=== PATIENT | male | born 1970 | race Hispanic/Latino ===

== ENCOUNTER 2022-01-19 12:29 | Emergency (ER) | payer OTHER ==
[~2022-01-19] VITALS: Ht 172.7 cm; Wt 190.5 kg
[2022-01-19 12:37] VITALS: BP 143/98
--- NOTE | 2022-01-19 12:46 | ER.PDOC ---
General Chief Complaint: Chest Pain-Cardiac Nature Stated Complaint: CHEST PAIN Time seen by MD: 12:22 Source: patient Exam Limitations: no limitations History of Present Illness Timing/Duration: intermittent, gone now Severity/Quality: sharp Radiation: no radiation Activities at Onset: rest Modifying Factors: breathing, coughing Nitro Today/Relief: No Nitro Taken Today Aspirin Today: No Aspirin Today Associated Symptoms: cough Past Medical History Medical History: diabetes, hypertension Surgical History: cholecystectomy, other Social History Alcohol Use: none Drug Use: none Constitutional: no symptoms reported EENTM: nose congestion Respiratory: cough Gastrointestinal: no symptoms reported Genitourinary: no symptoms reported Musculoskeletal: no symptoms reported Skin: no symptoms reported Psychiatric/Neurological: no symptoms reported All Other Systems: Reviewed and Negative Physical Exam General Appearance: No Apparent Distress, WD/WN HEENT: PERRL/EOMI, Normal ENT Inspection, TMs Normal, Pharynx Normal Neck: Non-Tender, Full Range of Motion, Supple, Normal Inspection Respiratory: rhonchi Cardiovascular: Normal Peripheral Pulses, Regular Rate, Rhythm, No Edema, No Gallop, No JVD, No Murmur Gastrointestinal: Normal Bowel Sounds, No Organomegaly, No Pulsatile Mass, Non Tender, Soft Extremities: Normal Range of Motion, Non-Tender, Normal Inspection, No Pedal Edema, No Calf Tenderness, Normal Capillary Refill 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 The patient nevertheless responded well to steroids and nebulized treatments and some Lasix. He actually feels much better and is going to be discharged home but I recommended he report to his PCP in the [place] area or hospital in [place]. He is leaving tonight. He does not want stay in the medical area where he has no family. He request to be discharged home. The son here at the bedside and he is going to be taking to forward. I explained to him that he must lose weight. I spent a considerable amount of time with this patient. Going back and forth to examine him. I attempted to transfer him but there were no beds in [facility]. He does not want to be transferred to one of the hospitals in [place]. In any case after several hours he improved. His oxygenation now on room air is between between 89-92 or 93. He is supposed 82. He speaks in full sentences. He appeared to be in no distress and he wanted discharged home. I believe that the intervention that we did have helped significantly. ER DEPART Departure Time of Disposition: 20:05 Disposition: 01 HOME / SELF CARE / HOMELESS Impression: Primary Impression: Congestive heart failure Additional Impressions: Acute pulmonary edema Post-COVID chronic dyspnea Hypoxia Condition: Improved Referrals: PCP,UNKNOWN (PCP) PRIMARY CARE PROVIDER Duration or Time Spent with Pa: 90 Problem Qualifiers ROCIO FUENTES MD Jan 19, 2022 12:46 ZAIDA MONREAL MD Jan 19, 2022 20:10
[2022-01-19 12:58] LABS: BASOPHIL # 0.1 10^3/uL (0.0-0.1); BASOPHIL % 0.4 % (0.0-0.2); EOSINOPHIL # 0.2 10^3/uL (0.0-0.2); EOSINOPHIL % 1.3 % (0.0-5.0); LYMPHOCYTES % 12.6 % (24.0-44.0); MEAN CORP HGB 29.8 pg (26-34); MONOCYTES # 0.9 10^3/uL (0.3-0.8); MONOCYTES % 6.6 % (5.0-12.0); NEUTROPHIL # 10.6 10^3/uL (1.8-7.7); PLATELET COUNT 175 10^3/uL (150-400); RED CELL DISTRIBUTION WIDTH 14.3 % (11.5-14.5)
--- NOTE | 2022-01-19 13:18 | PCM.EKG ---
[facility] Test Date: 2022-01-19 Test Time: 12:36:24 Pat Name: NOA HIRSCH [facility]: [id number] Room: Gender: M Mangle Catcher: LAURIE : 1970 Requested By: ROCIO MCKEON Order Number: [id number] Reading MD: Rocio Mckeon Measurements Intervals Pipestem Rate: 90 P: 6 PA: 172 QRS: -70 QRSD: 103 T: 46 QT: 332 QTc: 407 Interpretive Statements Sinus rhythm LAD, consider left anterior fascicular block Abnormal R-wave progression, late transition Baseline wander in lead(s) I,II,aVR No previous ECG available for comparison Electronically Signed On 01-30-2022 8:07:41 [employer]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
[2022-01-19 13:25] LABS: CARBON DIOXIDE 33.6 mmol/L (20.0-32)
--- NOTE | 2022-01-19 13:33 | DIREP ---
PROCEDURE:CHEST 2 VIEWS COMPARISON:None. INDICATIONS:CP FINDINGS: LUNGS/PLEURA:Mild interstitial prominence. No definite confluent airspace consolidation is identified. There is no sizable pleural effusion or appreciable pneumothorax. VASCULATURE:Fullness of the central hilar vasculature. CARDIAC:Mild prominence of the cardiac silhouette. MEDIASTINUM:Mediastinal contours appear within acceptable limits. BONES:No acute abnormality. OTHER:Negative. CONCLUSION: 1. Mild fullness of the central hilar vasculature with mild interstitial prominence throughout the bilateral hemithoraces does raise concern for potential mild CHF/fluid overload in the appropriate clinical setting. Please correlate with volume status. Dictated by: Zaid Brown M.D. On 01/19/2022 at 01:30 PM
[2022-01-19] MEDS ORDERED: DUO 0.5-3(2.5) MG/3 ML IH STA (13:52)
[2022-01-19] MEDS ORDERED: PREDNISONE PO STA ×2 (13:52→13:54)
[2022-01-19] MEDS ORDERED: DECADRON IH STA (13:52)
[2022-01-19] MEDS ORDERED: DECADRON ONE (14:07)
[2022-01-19] MEDS ORDERED: DUO 0.5-3(2.5) MG/3 ML IH ONE (14:07)
[2022-01-19] MEDS ORDERED: PREDNISONE ONE (14:28)
[2022-01-19] MEDS ORDERED: LASIX IV STA (14:50)
[2022-01-19] MEDS ORDERED: LASIX ONE (15:20)
--- NOTE | 2022-01-19 17:45 | NUR ---
[facility] EDP DR MONREAL ON PHONE WITH [facility] ABOUT POSSIBLE TRANSFER
--- NOTE | 2022-01-19 17:56 | NUR ---
[facility] PT IS PLACED ON THE WAITLIST AT THIS TIME, FACESHEET FAXED.
--- NOTE | 2022-01-19 18:33 | NUR ---
[facility] CALLED, STATES THEY ARE DECLINING PATIENT DUE TO NO BEDS. EDP NOTIFIED
== END 2022-01-19 20:17 | disposition home or self-care (01) ==
LOC: ER 12:29
DX: I11.0 Hypertensive heart disease with heart failure (principal); I50.1 Left ventricular failure, unspecified; E11.9 Type 2 diabetes mellitus without complications; R06.00 Dyspnea, unspecified; R09.02 Hypoxemia; U09.9 Post COVID-19 condition, unspecified; Z90.49 Acquired absence of other specified parts of digestive tract
CPT/HCPCS: 99285; 96374; 71046; 80053; 85025; 36415; 85379; 84484; 82553; 83880; 82550; 85610; 85730; 93005; J1100; J1940; J7512; 36600; 82803